=== PATIENT | female | born 1995 | race Hispanic/Latino ===

== ENCOUNTER 2017-04-26 22:27 | Inpatient (IN) | payer SELFPAY ==
[2017-04-26] MEDS ORDERED: cefTRIAXone\\ROCEPHIN 2 GM VIAL ONE (22:51)
[2017-04-26] MEDS ORDERED: Acetaminophen 325 MG TAB ONE (22:51)
[2017-04-26 22:52] LABS: #Basophils 0.1 thou/uL (0.0-0.2); #Neutrophils 15.9 thou/uL (1.40-6.50); %Basophils 0.3 % (0.0-1.0); %Eosinophils 0.1 % (0.0-10.0); %Lymphocytes 10.3 % (21.0-51.0); %Monocytes 5.4 % (0.0-10.0); Hematocrit 47.2 % (36.0-47.0); Mean Platelet Volume 7.9 fL (7.4-10.4); Red Blood Cell (RBC) Count 5.29 mill/uL (4.20-5.40); White Blood Cell (WBC) Count 18.9 thou/uL (4.8-10.8)
[2017-04-26 23:11] LABS: ALT (SGPT) 23 U/L (8-55); AST (SGOT) 22 U/L (5-34); Alkaline Phosphatase 99 U/L (40-150); Anion Gap 16 mmol/L (10-20); BUN (Urea Nitrogen) 5 mg/dL (7.0-18.7); Bilirubin, Total 0.9 mg/dL (0.2-1.2); Calc. Creatinine Clearance 0 mL/min (70-130); Calcium 9.4 mg/dL (7.8-10.44); Carbon Dioxide 22 mmol/L (22-29); Chloride 102 mmol/L (98-107); Estimated GFR-MDRD 88; Globulin 3.7 g/dL (2.4-3.5); Protein, Total 8.2 g/dL (6.0-8.3)
[2017-04-26] MEDS ORDERED: Ondansetron HCl/PF 4 MG/2 ML Vial ONE (23:15)
[2017-04-26 23:31] LABS: Bilirubin Negative (Negative); Blood, Urine Moderate (Negative); Glucose, Urine (Dipstick) Negative (Negative); Ketone, Urine 40 mg/dL (Negative); Nitrite Positive (Negative); Protein, Urine (Dipstick) 30 mg/dL (Neg-Trace)
[2017-04-26 23:39] LABS: Bacteria/HPF 4+ HPF (None Seen)
[2017-04-26 23:56] LABS: Hyaline Casts/LPF NONE SEEN LPF (0-3 Hyaline)
[2017-04-26 23:59] LABS: Renal Epithelial 0-3 HPF (0-3)
[2017-04-27 03:44] VITALS: BMI 32.9
[2017-04-27] MEDS ORDERED: Ondansetron HCl/PF 4 MG/2 ML Vial IVP PRN ×2 (03:52→07:40)
[2017-04-27] MEDS ORDERED: Ondansetron ODT 4 MG TAB SL PRN (03:52)
[2017-04-27] MEDS ORDERED: Acetaminophen 325 MG TAB PO PRN ×2 (03:52→04:19)
[2017-04-27] MEDS ORDERED: Sodium Chloride 0.9% 1,000 ML IV SCH (04:00)
[2017-04-27] MEDS ORDERED: Ibuprofen 200 MG TAB PO PRN (04:19)
[2017-04-27] MEDS: Sodium Chloride 0.9% 1,000 ML IV SCH ×2 (04:46→11:30)
[2017-04-27 05:20] LABS: Lactic Acid - Sepsis 1.1 mmol/L (0.5-2.2)
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
[2017-04-27] MEDS: Morphine Sulfate 2 MG/ML SYRINGE SLOW IVP PRN ×3 (07:20→20:11)
[2017-04-27] MEDS ORDERED: Ondansetron ODT 4 MG TAB PO PRN (07:40)
[2017-04-27] MEDS ORDERED: Diabetic Tussin 200 MG/10 ML UDCUP PO PRN (07:40)
[2017-04-27] MEDS ORDERED: Sodium Chloride 0.65% Nasal 44 ML BOT EA NARE PRN (07:40)
[2017-04-27] MEDS ORDERED: Artificial Tears 18 DROP/0.9 ML EA EYE PRN (07:40)
[2017-04-27] MEDS ORDERED: Senokot 8.6 MG TAB PO PRN (07:40)
[2017-04-27] MEDS ORDERED: Loratadine 10 MG TAB PO PRN (07:40)
[2017-04-27] MEDS ORDERED: Milk Of Magnesia 30 ML UDCUP PO PRN (07:40)
[2017-04-27] MEDS ORDERED: Temazepam 15 MG CAP PO PRN (07:40)
[2017-04-27] MEDS ORDERED: Loperamide HCl 2 MG CAP PO PRN (07:40)
[2017-04-27] MEDS ORDERED: Mag-Al 1200 mg/1200 mg/30 ML UDCUP PO PRN (07:40)
[2017-04-27] MEDS ORDERED: HYDROcodone/Acetaminophen 5/325 mg Tablet PO PRN (07:40)
[2017-04-27] MEDS ORDERED: Eucerin (Mineral Oil/Petrolatum,White) 30 gm Jar TOP PRN (07:40)
--- NOTE | 2017-04-27 08:23 | RAD ---
AP VIEW OF THE CHEST: INDICATION: Dyspnea. COMPARISON: Prior single view of the chest dated 09/16/10. FINDINGS: No airspace consolidation or pleural effusion is evident. Heart size and pulmonary vasculature are within normal limits. No acute osseous abnormality is evident. IMPRESSION: No acute cardiopulmonary abnormality. POS: [facility]
[2017-04-27] MEDS: Enoxaparin Sodium 40 MG/0.4 ML SYRINGE SC SCH (08:45)
[2017-04-27] MEDS: Famotidine 20 MG TAB PO SCH ×2 (08:45→20:08)
[2017-04-27] MEDS: Docusate 100 MG CAP PO SCH ×2 (08:45→20:08)
--- NOTE | 2017-04-27 09:13 | CT ---
CT ABDOMEN AND PELVIS WITHOUT CONTRAST: HISTORY: Recurrent UTI. Sepsis. Left flank pain. COMPARISON: Recent CT of the abdomen and pelvis from 10/03/2016. TECHNIQUE: Multiple axial tomograms obtained through the abdomen and pelvis without IV enhancement. FINDINGS: The lung bases are clear. The liver, spleen, and pancreas appear unremarkable, given the limitations of the noncontrast study. The adrenal glands appear normal. The kidneys are unremarkable. There is no hydronephrosis. There is no evidence of urinary tract ca lculus. The urinary bladder is contracted. there is an air-fluid level in the urinary bladder, and there is a bladder catheter in place. The small bowel loops are normal in caliber. The colon appears unremarkable. The appendix appears normal. The uterus and adnexa appear unremarkable. No free fluid. The aorta and retroperitoneum a ppear unremarkable. IMPRESSION: No acute findings. POS: [facility]
--- NOTE | 2017-04-27 10:52 | PDOC.PN ---
- Subjective Encounter Start Date: 04/27/17 Encounter Start Time: 09:00 -: old records requested/rev Patient seen and examined. No new complaints. No overnight events - Objective Resuscitation Status: Resuscitation Status FULL:Full Resuscitation MAR Reviewed: Yes Vital Signs & Weight: Vital Signs (12 hours) Temp Pulse Resp BP Pulse Ox 04/27/17 08:00 99.1 F 96 18 04/27/17 07:54 99.1 F 96 18 105/70 97 04/27/17 04:00 97.9 F 96 18 97 04/27/17 03:44 97.9 F 96 18 97/66 97 Weight Weight 174 lb 2.643 oz I&O: 04/26/17 04/27/17 04/28/17 06:59 06:59 06:59 Intake Total 990 Output Total 800 Balance 190 Result Diagrams: 04/26/17 22:38 04/26/17 22:38 Radiology Reviewed by me: Yes Phys Exam - Physical Examination Constitutional: NAD HEENT: PERRLA, moist MMs, sclera anicteric Neck: no JVD, supple Respiratory: no wheezing, no rales, no rhonchi Cardiovascular: RRR, no significant murmur, no rub Gastrointestinal: soft, non-tender, no distention, positive bowel sounds Musculoskeletal: no edema, pulses present Neurological: non-focal, normal sensation, moves all 4 limbs Psychiatric: normal affect, A&O x 3 Skin: no rash, normal turgor Dx/Plan (1) Sepsis Code(s): A41.9 - SEPSIS, UNSPECIFIED ORGANISM Status: Acute (2) UTI (urinary tract infection) Status: Acute Qualifiers: Urinary tract infection type: acute cystitis Hematuria presence: without hematuria Qualified Code(s): N30.00 - Acute cystitis without hematuria Comment: (3) Obesity (BMI 30.0-34.9) Code(s): E66.9 - OBESITY, UNSPECIFIED Status: Chronic (4) Low back pain Code(s): M54.5 - LOW BACK PAIN Status: Chronic - Plan cont current plan of care, continue antibiotics * continue IVF * continue rocephin and cipro * medication reviewed as below * symptomatic treatment * follow culture. Review of Systems - Review of Systems ENT: negative: Ear Pain, Ear Discharge, Nose Pain, Nose Discharge, Nose Congestion, Mouth Pain, Mouth Swelling, Throat Pain, Throat Swelling, Other Respiratory: negative: Cough, Dry, Shortness of Breath, Hemoptysis, SOB with Excertion, Pleuritic Pain, Sputum, Wheezing Cardiovascular: negative: Chest Pain, Palpitations, Orthopnea, Paroxysmal Noc. Dyspnea, Edema, Light Headedness, Other Gastrointestinal: negative: Nausea, Vomiting, Abdominal Pain, Diarrhea, Constipation, Melena, Hematochezia, Other Genitourinary: negative: Dysuria, Frequency, Incontinence, Hematuria, Retention , Other Musculoskeletal: negative: Neck Pain, Shoulder Pain, Arm Pain, Back Pain, Hand Pain, Leg Pain, Foot Pain, Other - Medications/Allergies Allergies/Adverse Reactions: Allergies Allergy/AdvReac Type Severity Reaction Status Date / Time No Known Drug Allergies Allergy Verified 10/04/16 00:06 Medications: Current Medications Acetaminophen (Tylenol) 650 mg PO Q4H PRN PRN Reason: Headache/Fever or Pain Hydrocodone Bitart/Acetaminophen ([place] 5/325) 1 tab PO Q4H PRN PRN Reason: Moderate Pain (4-6) Al Hydroxide/Mg Hydroxide (Maalox) 15 ml PO Q4H PRN PRN Reason: Heartburn or Indigestion Artificial Tears (Tears Naturale) 0 drop EA EYE PRN PRN PRN Reason: Dry Eyes Docusate Sodium (Colace) 100 mg PO BID [facility] Last Admin: 04/27/17 08:45 Dose: 100 mg Enoxaparin Sodium (Lovenox) 40 mg SC 0900 [facility] Last Admin: 04/27/17 08:45 Dose: 40 mg Famotidine (Pepcid) 20 mg PO BID [facility] Last Admin: 04/27/17 08:45 Dose: 20 mg Guaifenesin (Robitussin Sf) 200 mg PO Q4H PRN PRN Reason: Cough Hydralazine HCl (Apresoline) 10 mg SLOW IVP Q4H PRN PRN Reason: Systolic BP > 180 Ciprofloxacin/Dextrose 400 mg/ (Device) 200 mls @ 200 mls/hr IVPB Q12HR [facility] Last Admin: 04/27/17 08:45 Dose: 200 mls Sodium Chloride (Normal Saline 0.9%) 1,000 mls @ 100 mls/hr IV .Q10H [facility] Last Admin: 04/27/17 04:46 Dose: Not Given Ceftriaxone Sodium 2 gm/ (Sodium Chloride) 100 mls @ 200 mls/hr IVPB Q24HR [place] Ibuprofen (Motrin) 400 mg PO TIDPRN PRN PRN Reason: Pain Loperamide HCl (Imodium) 2 mg PO PRN PRN PRN Reason: Diarrhea/Loose Stools Loratadine (Claritin) 10 mg PO DAILYPRN PRN PRN Reason: Sinus Symptoms Magnesium Hydroxide (Milk Of Magnesium) 30 ml PO DAILYPRN PRN PRN Reason: Constipation Mineral Oil/White Petrolatum (Eucerin Cream) 0 gm TOP BIDPRN PRN PRN Reason: Dry Skin Morphine Sulfate (Morphine Sulfate) 2 mg SLOW IVP Q4H PRN PRN Reason: Chest Pain/BP Elevations Last Admin: 04/27/17 07:20 Dose: 2 mg Ondansetron HCl (Zofran Odt) 4 mg PO Q6H PRN PRN Reason: Nausea/Vomiting Ondansetron HCl (Zofran) 4 mg IVP Q6H PRN PRN Reason: Nausea/Vomiting Senna (Senokot) 2 tab PO HSPRN PRN PRN Reason: Constipation Sodium Chloride ([place] Nasal [place] 0.65%) 0 ml EA NARE QIDPRN PRN PRN Reason: Nasal Congestion Tamsulosin HCl (Flomax) 0.4 mg PO HS [facility] Temazepam (Restoril) 15 mg PO HSPRN PRN PRN Reason: Insomnia
[2017-04-27] MEDS: Tamsulosin HCl 0.4 MG CAP PO SCH (20:08)
[2017-04-27] MEDS: cefTRIAXone\\ROCEPHIN 2 GM in Sodium Chloride 0.9% 100 ML IVPB SCH (20:08)
[2017-04-28] MEDS: Sodium Chloride 0.9% 1,000 ML IV SCH (02:09)
[2017-04-28] MEDS: Morphine Sulfate 2 MG/ML SYRINGE SLOW IVP PRN ×2 (04:28→20:32)
[2017-04-28 06:32] LABS: #Eosinphils 0.1 thou/uL (0.0-0.7); #Lymphocytes 2.4 thou/uL (1.20-3.40); #Monocytes 0.7 thou/uL (0.11-0.59); #Neutrophils 4.3 thou/uL (1.40-6.50); %Basophils 0.4 % (0.0-1.0); %Eosinophils 1.9 % (0.0-10.0); %Lymphocytes 31.5 % (21.0-51.0); %Monocytes 8.6 % (0.0-10.0); Hematocrit 37.8 % (36.0-47.0); Mean Platelet Volume 8.3 fL (7.4-10.4); Red Blood Cell (RBC) Count 4.14 mill/uL (4.20-5.40); White Blood Cell (WBC) Count 7.5 thou/uL (4.8-10.8)
[2017-04-28 06:48] LABS: Anion Gap 14 mmol/L (10-20); BUN (Urea Nitrogen) 5 mg/dL (7.0-18.7); Calc. Creatinine Clearance 173 mL/min (70-130); Calcium 8.3 mg/dL (7.8-10.44); Carbon Dioxide 19 mmol/L (22-29); Chloride 110 mmol/L (98-107); Estimated GFR-MDRD Greater than 90
[2017-04-28] MEDS: Famotidine 20 MG TAB PO SCH ×2 (08:31→20:28)
[2017-04-28] MEDS: Docusate 100 MG CAP PO SCH ×2 (08:31→20:29)
[2017-04-28] MEDS: Enoxaparin Sodium 40 MG/0.4 ML SYRINGE SC SCH (08:32)
--- NOTE | 2017-04-28 10:27 | PDOC.PN ---
- Subjective Encounter Start Date: 04/28/17 Encounter Start Time: 07:55 Patient seen and examined. No new complaints. No overnight events - Objective Resuscitation Status: Resuscitation Status FULL:Full Resuscitation MAR Reviewed: Yes Vital Signs & Weight: Vital Signs (12 hours) Temp Pulse Resp BP Pulse Ox 04/28/17 08:00 98.0 F 70 16 04/28/17 07:50 98.0 F 70 16 107/74 98 Weight Weight 174 lb 2.643 oz I&O: 04/27/17 04/28/17 04/29/17 06:59 06:59 06:59 Intake Total 4010 Output Total 4000 Balance 10 Result Diagrams: 04/28/17 05:57 04/28/17 05:57 Radiology Reviewed by me: Yes (CT abdomen) Phys Exam - Physical Examination Constitutional: NAD HEENT: PERRLA, moist MMs, sclera anicteric Neck: no JVD, supple Respiratory: no wheezing, no rales, no rhonchi Cardiovascular: RRR, no significant murmur, no rub Gastrointestinal: soft, non-tender, no distention, positive bowel sounds Musculoskeletal: no edema, pulses present Neurological: non-focal, normal sensation, moves all 4 limbs Lymphatic: no nodes Psychiatric: normal affect, A&O x 3 Skin: no rash, normal turgor Dx/Plan (1) Sepsis Code(s): A41.9 - SEPSIS, UNSPECIFIED ORGANISM Status: Acute (2) UTI (urinary tract infection) Status: Acute Qualifiers: Urinary tract infection type: acute cystitis Hematuria presence: without hematuria Qualified Code(s): N30.00 - Acute cystitis without hematuria Comment: (3) Obesity (BMI 30.0-34.9) Code(s): E66.9 - OBESITY, UNSPECIFIED Status: Chronic (4) Low back pain Code(s): M54.5 - LOW BACK PAIN Status: Chronic - Plan cont current plan of care, continue antibiotics * DC IVF * continue rocephin and cipro * follow culture * will change to oral antibiotics tomorrow and plan for discharge tomorrow * medication reviewed as below * symptomatic treatment.. Review of Systems - Review of Systems ENT: negative: Ear Pain, Ear Discharge, Nose Pain, Nose Discharge, Nose Congestion, Mouth Pain, Mouth Swelling, Throat Pain, Throat Swelling, Other Respiratory: negative: Cough, Dry, Shortness of Breath, Hemoptysis, SOB with Excertion, Pleuritic Pain, Sputum, Wheezing Cardiovascular: negative: Chest Pain, Palpitations, Orthopnea, Paroxysmal Noc. Dyspnea, Edema, Light Headedness, Other Gastrointestinal: negative: Nausea, Vomiting, Abdominal Pain, Diarrhea, Constipation, Melena, Hematochezia, Other Genitourinary: negative: Dysuria, Frequency, Incontinence, Hematuria, Retention , Other Musculoskeletal: negative: Neck Pain, Shoulder Pain, Arm Pain, Back Pain, Hand Pain, Leg Pain, Foot Pain, Other - Medications/Allergies Allergies/Adverse Reactions: Allergies Allergy/AdvReac Type Severity Reaction Status Date / Time No Known Drug Allergies Allergy Verified 10/04/16 00:06 Medications: Current Medications Acetaminophen (Tylenol) 650 mg PO Q4H PRN PRN Reason: Headache/Fever or Pain Hydrocodone Bitart/Acetaminophen ([place] 5/325) 1 tab PO Q4H PRN PRN Reason: Moderate Pain (4-6) Al Hydroxide/Mg Hydroxide (Maalox) 15 ml PO Q4H PRN PRN Reason: Heartburn or Indigestion Artificial Tears (Tears Naturale) 0 drop EA EYE PRN PRN PRN Reason: Dry Eyes Docusate Sodium (Colace) 100 mg PO BID [facility] Last Admin: 04/28/17 08:31 Dose: 100 mg Enoxaparin Sodium (Lovenox) 40 mg SC 0900 [facility] Last Admin: 04/28/17 08:32 Dose: 40 mg Famotidine (Pepcid) 20 mg PO BID [facility] Last Admin: 04/28/17 08:31 Dose: 20 mg Guaifenesin (Robitussin Sf) 200 mg PO Q4H PRN PRN Reason: Cough Hydralazine HCl (Apresoline) 10 mg SLOW IVP Q4H PRN PRN Reason: Systolic BP > 180 Ciprofloxacin/Dextrose 400 mg/ (Device) 200 mls @ 200 mls/hr IVPB Q12HR [facility] Last Admin: 04/28/17 08:31 Dose: 200 mls Ceftriaxone Sodium 2 gm/ (Sodium Chloride) 100 mls @ 200 mls/hr IVPB Q24HR [facility] Last Admin: 04/27/17 20:08 Dose: 100 mls Ibuprofen (Motrin) 400 mg PO TIDPRN PRN PRN Reason: Pain Loperamide HCl (Imodium) 2 mg PO PRN PRN PRN Reason: Diarrhea/Loose Stools Loratadine (Claritin) 10 mg PO DAILYPRN PRN PRN Reason: Sinus Symptoms Magnesium Hydroxide (Milk Of Magnesium) 30 ml PO DAILYPRN PRN PRN Reason: Constipation Mineral Oil/White Petrolatum (Eucerin Cream) 0 gm TOP BIDPRN PRN PRN Reason: Dry Skin Morphine Sulfate (Morphine Sulfate) 2 mg SLOW IVP Q4H PRN PRN Reason: Chest Pain/BP Elevations Last Admin: 04/28/17 04:28 Dose: 2 mg Ondansetron HCl (Zofran Odt) 4 mg PO Q6H PRN PRN Reason: Nausea/Vomiting Ondansetron HCl (Zofran) 4 mg IVP Q6H PRN PRN Reason: Nausea/Vomiting Senna (Senokot) 2 tab PO HSPRN PRN PRN Reason: Constipation Sodium Chloride ([place] Nasal [place] 0.65%) 0 ml EA NARE QIDPRN PRN PRN Reason: Nasal Congestion Tamsulosin HCl (Flomax) 0.4 mg PO HS [facility] Last Admin: 04/27/17 20:08 Dose: 0.4 mg Temazepam (Restoril) 15 mg PO HSPRN PRN PRN Reason: Insomnia
[2017-04-28] MEDS: Tamsulosin HCl 0.4 MG CAP PO SCH (20:28)
[2017-04-28] MEDS: cefTRIAXone\\ROCEPHIN 2 GM in Sodium Chloride 0.9% 100 ML IVPB SCH (22:57)
[2017-04-29] MEDS: Famotidine 20 MG TAB PO SCH (09:38)
[2017-04-29] MEDS: Docusate 100 MG CAP PO SCH (09:39)
[2017-04-29] MEDS: Enoxaparin Sodium 40 MG/0.4 ML SYRINGE SC SCH (09:39)
--- NOTE | 2017-04-29 12:04 | DIS ---
DATE OF ADMISSION: 04/26/2017 DATE OF DISCHARGE: 04/29/2017 PRIMARY CARE PHYSICIAN: Dr. Domo Brown. DISCHARGE DISPOSITION: Home. PRIMARY DISCHARGE DIAGNOSES: 1. Sepsis, resolved. 2. Urinary tract infection due to Escherichia coli. SECONDARY DISCHARGE DIAGNOSES: Obesity with BMI 32, chronic low back pain. PRIMARY PROCEDURE/OPERATION: None. RADIOLOGICAL INVESTIGATION: Chest x-ray was normal. Abdomen and pelvis CT scan was negative for any obstruction. SIGNIFICANT LABORATORY DATA: WBC 7.5, hemoglobin 12.8, platelet 124. Sodium 139, creatinine 0.63. LFT normal. Lactic acid normal. Urinalysis suggestive of UTI. Urine culture grew E. coli. Blood culture was negative. DISCHARGE MEDICATIONS: Ciprofloxacin 500 mg p.o. b.i.d. for 10 days. CONTRAINDICATIONS: None. CODE STATUS: FULL CODE. INPATIENT CONSULTANTS: None. ALLERGIES: No known drug allergies. DISCHARGE PLAN: Post hospital, patient will follow up with primary care physician in 1 week. HOSPITAL COURSE: A 21-year-old female who was admitted by Dr. Ovalles, please see his H\T\P for further details. Patient was mainly admitted for UTI symptoms. She was having abnormal urinalysis and suspicious for UTI. She also had leukocytosis. She was having sepsis criteria. She was admitted to medical floor. She was treated with Rocephin and ciprofloxacin. She was also given IV fluid while in hospital. CT abdomen stone protocol was done, which was unremarkable. Patient culture grew E. coli and based on culture and sensitivity result, we are changing to Cipro on discharge. In emergency room, they did Berry catheter, which was discontinued after admission. Patient is seen and examined at bedside today. PHYSICAL EXAMINATION: VITAL SIGNS: Currently temperature 98.2, pulse 66, respiratory rate 16, saturation 97%, blood pressure 93/61, weight 174 pounds. GENERAL: Patient is currently alert, awake, no acute distress. HEAD: Normocephalic, atraumatic. LUNGS: Clear. CARDIAC: S1, S2 regular without any murmur. ABDOMEN: Soft and benign. EXTREMITIES: No edema. NEUROLOGIC: Nonfocal examination. Total time spent on discharge day more than 30 minutes. [facility]
[2017-04-29 17:17] VITALS: BP 104/72; TEMP 98.5
== END 2017-04-29 13:29 | disposition home or self-care (01) | DRG 872 ==
LOC: ERS 22:27 → T4-A 23:55
PROVIDERS: ADMIT Internal Medicine; ATTEND Internal Medicine
DX: A41.9 Sepsis, unspecified organism (principal); N39.0 Urinary tract infection, site not specified; E66.9 Obesity, unspecified; M54.5 Low back pain; Z68.32 Body mass index [BMI] 32.0-32.9, adult; B96.20 Unspecified Escherichia coli [E. coli] as the cause of diseases classified elsewhere
CPT/HCPCS: 36415; 51702; 71010; 74176; 80048; 80053; 81003; 81015; 81025; 83605; 85025; 87040; 87077; 87086; 87186; 96361; 96365; 96366; 96367; 96374; 96375; J0696; J0744; J1650; J1956; J2270; J2405; J7050

== ENCOUNTER 2018-05-16 22:25 | Emergency (ER) | payer BC, SELFPAY ==
[2018-05-16 22:56] LABS: #Basophils 0.1 thou/uL (0.0-0.2); #Eosinphils 0.2 thou/uL (0.0-0.7); #Lymphocytes 3.5 thou/uL (1.20-3.40); #Monocytes 0.7 thou/uL (0.11-0.59); #Neutrophils 9.1 thou/uL (1.40-6.50); %Basophils 0.4 % (0.0-1.0); %Eosinophils 1.7 % (0.0-10.0); %Lymphocytes 25.6 % (21.0-51.0); %Monocytes 5.3 % (0.0-10.0); %Neutrophils 67.1 % (42.0-75.0); Mean Corpuscular Hemoglobin 30.6 pg (27.0-31.0); Mean Platelet Volume 8.4 fL (7.4-10.4); Platelet Count 243 thou/uL (130-400); RBC Distribution Width 11.6 % (11.5-14.5); Red Blood Cell (RBC) Count 4.57 mill/uL (4.20-5.40); White Blood Cell (WBC) Count 13.6 thou/uL (4.8-10.8)
[2018-05-16 23:09] LABS: BHCG - Serum POSITIVE (NEGATIVE); Pregs Control Background? CLEAR/WHITE (CLR/WHITE); Pregs Control Bar Appear? YES (CONTROL BAR)
[2018-05-16 23:18] LABS: ALT (SGPT) 22 U/L (8-55); AST (SGOT) 13 U/L (5-34); Albumin 4.1 g/dL (3.5-5.0); Alkaline Phosphatase 84 U/L (40-150); Anion Gap 12 mmol/L (10-20); BUN (Urea Nitrogen) 8 mg/dL (7.0-18.7); Bilirubin, Total 0.4 mg/dL (0.2-1.2); Calc. Creatinine Clearance 0 mL/min (70-130); Calcium 9.3 mg/dL (7.8-10.44); Carbon Dioxide 23 mmol/L (22-29); Chloride 104 mmol/L (98-107); Estimated GFR-MDRD Greater than 90; Glucose 120 mg/dL (70-105); Protein, Total 7.1 g/dL (6.0-8.3); Sodium 135 mmol/L (136-145)
[2018-05-16 23:22] LABS: Bilirubin Negative (Negative); Blood, Urine Small (Negative); Clarity CLEAR (Clear); Glucose, Urine (Dipstick) Negative (Negative); Leukocyte Trace (Negative); Nitrite Negative (Negative); Protein, Urine (Dipstick) Negative (Neg-Trace); Specific Gravity, Urine 1.026 (1.002-1.036)
[2018-05-16 23:24] LABS: Bacteria/HPF None Seen HPF (None Seen); Hyaline Casts/LPF 0-3 HYALINE CAST LPF (0-3 Hyaline); Pathc Cast-AUWi Flag 0.58 (0-2.49); RBC/HPF 0-3 HPF (0-3)
[2018-05-16] MEDS ORDERED: Acetaminophen 500 MG TAB ONE (23:26)
[2018-05-17] MEDS ORDERED: cefTRIAXone\\ROCEPHIN 1 GM VIAL ONE (00:43)
[2018-05-17] MEDS ORDERED: Sodium Chloride 0.9% 100 ML ONE (00:43)
[2018-05-17] MEDS ORDERED: Morphine 4 MG/ML VIAL ONE (00:47)
--- NOTE | 2018-05-17 08:28 | ULT ---
PRELIMINARY REPORT/[facility]/EMERGENTY AFTER-HOURS PROCEDURE US Transabd First Trimester First Gest CLINICAL HISTORY: 22 years old, female; Pain and signs and symptoms; Lmp or gestational age (in weeks): 7w1d; Antepartu m complications; Bleeding; complicated by abdominal or pelvic pain; Other: Left flank; Preg nant TECHNIQUE: Real-time ultrasound of the transabd first trimester first gest with image documentation. COMPARISON: No relevant prior studies available. FINDINGS: There is a live single intrauterine with an estimated heart rate of 128 beats per min mo[place]gan. GESTATIONAL SAC - 2.6 cm - C/W 7 weeks 4 days CRL - 7.7 mm - C/W 6 weeks 5 days YOLK SAC - 4.5 mm There are no uterine abnormalities or significant free intraperitoneal fluid. The adenxa are unremark able. IMPRESSION: Single live intrauterine with an estimated gestational age of 7 weeks 2 days by ultrasound criteria. Small subchorionic hemorrhage Thank you for allowing us to participate in the care of your patient. Dictated and Authenticated by: Edward Cortes MD 05/17/2018 1:10 AM Central Time ([place] & [place]) FINAL REPORT OBSTETRIC SONOGRAM: DATE: 05/17/2018. TIME: Performed on an emergency basis at 0004 hours. HISTORY: Early . Pain and bleeding. FINDINGS: Agree with the preliminary report by Dr. Cortes from [facility]. Early intrauterine gestation is documented with estimated age of 7 weeks 2 days. Small subchorionic hemorrhage. POS: [facility]
== END 2018-05-17 01:27 | disposition home or self-care (01) ==
LOC: ERS 22:25
DX: O20.0 Threatened abortion (principal); O23.41 Unspecified infection of urinary tract in pregnancy, first trimester; Z87.442 Personal history of urinary calculi; Z3A.01 Less than 8 weeks gestation of pregnancy
CPT/HCPCS: 36415; 76856; 80053; 81003; 81015; 84702; 84703; 85025; 86900; 86901; 87086; 96361; 96365; 96375; J0696; J2270; J7050

== ENCOUNTER 2018-06-27 18:17 | Emergency (ER) | payer BC ==
[2018-06-27] MEDS ORDERED: Lidocaine 1% (PF) 30 ML VIAL ONE (18:29)
== END 2018-06-27 19:03 | disposition home or self-care (01) ==
LOC: ERS 18:17
DX: O99.711 Diseases of the skin and subcutaneous tissue complicating pregnancy, first trimester (principal); L03.011 Cellulitis of right finger; Z3A.12 12 weeks gestation of pregnancy
CPT/HCPCS: 10061; J2001

== ENCOUNTER 2018-10-17 17:32 | Day surgery (SDC) | payer BC ==
[2018-10-17 17:58] VITALS: BP 108/62; TEMP 98.3; BMI 36.1
--- NOTE | 2018-10-17 18:10 | PDOC.LDHP ---
Labor and Delivery H&P Chief complaint: other (28 weeks 3 days, here for lower back pain possible kidney stone) HPI: Patient of Dr Roca here in L&D Triage Tiem: 1805 HPI: 23 yo at 28 weeks 3 days with HX recurrent UTIs and HX renal stones in past. She has been on Keflex since the fall for UTI hx. Here for LBP and possible stone pain but no CTX, no VB, no SOB. States last she was "septic" from the stone and transfered to another location. review of Systems: Complete ROS completed and as per HPI Current gestational age (weeks): 28 (3 days) Dating criteria: last menstrual period Grav: 3 Para: 2 OB History Details: One PTB HX at 26 weeks induced for "kidney stones" Current complications: other (Recurrent UTI HX and "kidney stones") Abnormal US findings: No Current medications: pre-mariama vitamins, other (Keflex) Allergies/Adverse Reactions: Allergies Allergy/AdvReac Type Severity Reaction Status Date / Time No Known Drug Allergies Allergy Verified 10/04/16 00:06 Social history: none - Physical Exam Vital signs reviewed and normal: yes (108/62 P90 Temp 98.3) General: NAD Heart: RRR Lungs: CTAB Abdomen: gravid Extremeties: no edema FHT: category 1 [place] contractions every: none - Assessment at 28 weeks 3 days with possible renal colic...afebrile, on suppression. - Plan Plan: observation in L&D (I have ordered: 1. IVFs 2. pain meds prn 3. Cath UA 4. CBC 5. CMP 6. Bilateral renal sono with jets)
[2018-10-17] MEDS ORDERED: Lactated Ringer's 1,000 ML IV SCH (18:15)
[2018-10-17] MEDS ORDERED: Butorphanol Tartrate 1 MG/ML VIAL SLOW IVP PRN (18:22)
[2018-10-17] MEDS ORDERED: Promethazine HCl 25 MG/ML VIAL IM/IV PRN (18:22)
[2018-10-17 18:41] LABS: #Basophils 0.1 thou/uL (0.0-0.2); #Eosinphils 0.1 thou/uL (0.0-0.7); #Lymphocytes 3.1 thou/uL (1.20-3.40); #Monocytes 0.8 thou/uL (0.11-0.59); #Neutrophils 9.6 thou/uL (1.40-6.50); %Basophils 0.4 % (0.0-1.0); %Eosinophils 0.8 % (0.0-10.0); %Lymphocytes 22.8 % (21.0-51.0); %Monocytes 5.5 % (0.0-10.0); %Neutrophils 70.4 % (42.0-75.0); Hemoglobin 12.9 g/dL (12.0-16.0); Mean Corpuscular HGB CONC 33.7 g/dL (32.0-36.0); Mean Corpuscular Hemoglobin 29.6 pg (27.0-31.0); Mean Corpuscular Volume 87.9 fL (78.0-98.0); Mean Platelet Volume 9.4 fL (7.4-10.4); Platelet Count 211 thou/uL (130-400); RBC Distribution Width 11.5 % (11.5-14.5); Red Blood Cell (RBC) Count 4.34 mill/uL (4.20-5.40); White Blood Cell (WBC) Count 13.6 thou/uL (4.8-10.8)
[2018-10-17 18:50] LABS: Bilirubin Negative (Negative); Blood, Urine Negative (Negative); Clarity TURBID (Clear); Glucose, Urine (Dipstick) Negative (Negative); Leukocyte Negative (Negative); Nitrite Negative (Negative); Protein, Urine (Dipstick) Negative (Neg-Trace); Specific Gravity, Urine 1.026 (1.002-1.036); pH, Urine 6.5 (5.0-9.0)
[2018-10-17 18:55] LABS: Bacteria/HPF None Seen HPF (None Seen); Hyaline Casts/LPF 0-3 HYALINE CAST LPF (0-3 Hyaline); Pathc Cast-AUWi Flag 0.27 (0-2.49); RBC/HPF 0-3 HPF (0-3); Squamous Epithelial 0-3 HPF (0-3); Urine Culture Reflex No No; WBC/HPF 0-3 HPF (0-3)
--- NOTE | 2018-10-17 19:24 | PDOC.EVN ---
Event Note - Event Note Event Note: 1924: Lab follow up/Patient follow up: Still afebrile Feels better after IVF hydration No VB, no LOF No CTX on toco Labs: UA clear CBC with WBC 13.6 with 9.6 Neutros (possible effect) CMP still pending Renal sono with bilateral ueretral jets seen, no stone in renal pelyvices I have discussed the findings with the patient and family at bedside. At this time, I do not see evidence of pyelo. There is no evidence of ureteral obstruction, nor PTL. This may have been small ureteral colic vs discomforts of . I did not check CX as my suspicoin that t5his is labor related is very low Await CMP and likely follow up with MD in 48 hrs
[2018-10-17 19:35] LABS: ALT (SGPT) 13 U/L (8-55); AST (SGOT) 11 U/L (5-34); Albumin 3.5 g/dL (3.5-5.0); Alkaline Phosphatase 123 U/L (40-150); Anion Gap 13 mmol/L (10-20); BUN (Urea Nitrogen) 10 mg/dL (7.0-18.7); Bilirubin, Total 0.2 mg/dL (0.2-1.2); Calc. Creatinine Clearance 210 mL/min (70-130); Carbon Dioxide 22 mmol/L (22-29); Chloride 106 mmol/L (98-107); Estimated GFR-MDRD Greater than 90; Globulin 3.1 g/dL (2.4-3.5); Glucose 80 mg/dL (70-105); Potassium 3.9 mmol/L (3.5-5.1); Protein, Total 6.6 g/dL (6.0-8.3); Sodium 137 mmol/L (136-145)
--- NOTE | 2018-10-17 19:52 | PDOC.EVN ---
Event Note - Event Note Event Note: CMP ok
--- NOTE | 2018-10-17 21:00 | ULT ---
RENAL SONOGRAM: 10/17/2018 HISTORY: Flank pain. History of kidney stones. The patient is currently . FINDINGS: The right kidney measures 12.2 cm x 4.3 cm with the left kidney measuring 9.9 cm x 5.5 cm. There is mild discrepancy in renal size, of uncertain etiology. There is mild right hydronephrosis. Minimal pelviectasis is present on the left, without overt hydro nephrosis seen on the left. The urinary bladder is partially distended and has a normal sonographic appearance. The ureteral jet s are visualized bilaterally on color-flow evaluation. The patient is unable to void for further aurora luation. IMPRESSION: 1. Mild right hydronephrosis with minimal pelvocaliectasis on the left. Findings are likely attribu table to the patient's intrauterine gestation. 2. Ureteral jets are visualized bilaterally with color-flow evaluation. 3. Mild nonspecific asymmetry in renal size. No renal mass or perinephric fluid collection is seen. POS: [facility]
== END 2018-10-17 20:08 | disposition home or self-care (01) ==
LOC: L&D/OP 17:32
PROVIDERS: ATTEND Obstetrics & Gynecology
DX: O99.89 Other specified diseases and conditions complicating pregnancy, childbirth and the puerperium (principal); M54.5 Low back pain; Z3A.28 28 weeks gestation of pregnancy; Z79.899 Other long term (current) drug therapy; Z79.2 Long term (current) use of antibiotics
CPT/HCPCS: 36415; 51701; 76770; 80053; 81001; 85025; 96360; 96372; 99283; J0595; J2550

== ENCOUNTER 2018-11-07 18:09 | Day surgery (SDC) | payer BC ==
[2018-11-07 18:44] VITALS: BP 112/56; TEMP 98.5; BMI 38.0
[2018-11-07 19:41] LABS: Bilirubin Negative (Negative); Blood, Urine Large (Negative); Clarity TURBID (Clear); Glucose, Urine (Dipstick) Negative (Negative); Leukocyte Large (Negative); Nitrite Negative (Negative); Protein, Urine (Dipstick) 100 mg/dL (Neg-Trace); Specific Gravity, Urine 1.021 (1.002-1.036); pH, Urine 6.5 (5.0-9.0)
[2018-11-07 19:43] LABS: Bacteria/HPF 4+ HPF (None Seen); Hyaline Casts/LPF 7-10 HYALINE CAST LPF (0-3 Hyaline); Pathc Cast-AUWi Flag 1.85 (0-2.49); RBC/HPF GREATER THAN 50-TNTC HPF (0-3); Squamous Epithelial 0-3 HPF (0-3)
--- NOTE | 2018-11-07 20:11 | PDOC.LDHP ---
Labor and Delivery H&P Chief complaint: abdominal pain HPI: 23 y/o at 31w3d, patient of Dr. Mello, presents with lower abdominal pressure, cramping. Has history of frequent UTIs. Denies VB, LOF, or decreased FM. ROS neg for HEENT, cv, pulm, gi, gu, neuro, psych, skin, musculoskeletal or constitutional symptoms other than mentioned above. OB History Details: 2 prior term SVDs Current complications: none Past Medical History: Recurrent UTIs Hx kidney stones Current medications: pre- vitamins, other (Keflex) Previous surgical history: cholecystectomy, other (hernia repair) Allergies/Adverse Reactions: Allergies Allergy/AdvReac Type Severity Reaction Status Date / Time No Known Drug Allergies Allergy Verified 11/07/18 18:45 Social history: none - Physical Exam Vital signs reviewed and normal: yes General: NAD, resting Lungs: nonlabored breathing Abdomen: gravid Extremeties: no edema FHT: category 1 (130s, mod variability, + accels, no decels) [place] contractions every: none - Vaginal Exam cm dilated: 0 Effacement: 0% Station: -3 - Assessment 23 y/o at 31w3d with UTI. No e/o active labor. status reassuring with reactive NST. - Plan -: Given Rx for augmentin. D/c home with precautions. Advised to return for fever , back pain, or other concerns.
== END 2018-11-07 20:20 | disposition home or self-care (01) ==
LOC: L&D/OP 18:09
PROVIDERS: ATTEND Obstetrics & Gynecology
DX: O23.43 Unspecified infection of urinary tract in pregnancy, third trimester (principal); Z79.899 Other long term (current) drug therapy; Z3A.31 31 weeks gestation of pregnancy; Z79.2 Long term (current) use of antibiotics
CPT/HCPCS: 51701; 81001; 99282; A4353

== ENCOUNTER 2018-11-08 12:58 | Observation (INO) | payer BC, OTHER ==
[2018-11-08 14:26] VITALS: BMI 37.4
--- NOTE | 2018-11-08 14:41 | ULT ---
FExam: Bilateral renal ultrasound HISTORY: 31 week patient. History of renal calculi and hydronephrosis. COMPARISON: 10/17/2018 FINDINGS: Right kidney: Normal cortical echotexture. There is dilatation of the pelvis. No evidence of signific ant calyceal dilatation. When compared to the previous examination, the degree of hydronephrosis has decreased. Right kidney measurements: 4.4 x 11.9 x 5.0 cm Left kidney: Normal cortical echotexture. No hydronephrosis Left kidney measurements 6.5 x 5.1 x 12.0 cm Urinary bladder: Limited evaluation due to decompressed bladder. IMPRESSION: 1. Mild right renal pelvic dilatation without calyceal dilatation. The degree of hydronephrosis has s lightly decreased when compared to the previous examination. 2. Due to recent Berry catheterization, urinary bladder was not distended. Neither ureteral jet could be identified on this examination.
[2018-11-08 14:42] LABS: #Eosinphils 0.1 thou/uL (0.0-0.7); #Lymphocytes 2.1 thou/uL (1.20-3.40); #Monocytes 0.7 thou/uL (0.11-0.59); #Neutrophils 8.8 thou/uL (1.40-6.50); %Basophils 0.4 % (0.0-1.0); %Eosinophils 0.7 % (0.0-10.0); %Monocytes 5.9 % (0.0-10.0); Hemoglobin 11.6 g/dL (12.0-16.0); Mean Corpuscular HGB CONC 33.5 g/dL (32.0-36.0); Mean Corpuscular Hemoglobin 29.3 pg (27.0-31.0); Mean Corpuscular Volume 87.5 fL (78.0-98.0); Platelet Count 190 thou/uL (130-400); RBC Distribution Width 11.6 % (11.5-14.5); Red Blood Cell (RBC) Count 3.96 mill/uL (4.20-5.40); White Blood Cell (WBC) Count 11.7 thou/uL (4.8-10.8)
[2018-11-08] MEDS ORDERED: Acetaminophen 500 MG TAB PO PRN (14:54)
[2018-11-08] MEDS ORDERED: Ondansetron PF 4 MG/2 ML Vial IVP PRN (14:54)
[2018-11-08] MEDS ORDERED: Promethazine HCl 25 MG/ML VIAL IM PRN (14:54)
[2018-11-08] MEDS ORDERED: Lactated Ringer's 1,000 ML IV SCH (15:00)
[2018-11-08] MEDS ORDERED: Butorphanol Tartrate 1 MG/ML VIAL ONE (15:04)
[2018-11-08] MEDS: Butorphanol Tartrate 1 MG/ML VIAL SLOW IVP PRN (15:15)
[2018-11-08] MEDS: cefTRIAXone\\ROCEPHIN 1 GM in Sodium Chloride 0.9% 100 ML IVPB SCH (15:30)
[2018-11-08] MEDS: Acetaminophen/Codeine 30-300mg Tablet PO PRN ×2 (16:57→21:23)
[2018-11-08] MEDS: Zolpidem Tartrate 5 MG TAB PO PRN (22:13)
--- NOTE | 2018-11-08 22:31 | HP ---
CHIEF COMPLAINT: Back pain, recent UTI. HISTORY OF PRESENT ILLNESS: Ms. Rees is a 23-year-old G3, P2-0-0-2 with an estimated date of confinement of 01/06/2019, who presents from Dr. Roca's office. She saw him today after being evaluated in Labor and Delivery last night. She was seen by Dr. Jo and treated for urinary tract infection. Overnight, she states that she has felt worse. She does not feel well in general and now she is complaining of back pain, worse on the left than on the right. She denies ruptured membranes or vaginal bleeding. Her care has been with Dr. Roca and she has been on prophylactic Keflex for history of UTI and sepsis. PAST OBSTETRICAL HISTORY: Includes two uncomplicated vaginal deliveries. She states that she did have urinary sepsis at 20 weeks with her last and states she was admitted to the ICU. PAST MEDICAL HISTORY: Frequent UTIs. PAST SURGICAL HISTORY: Cholecystectomy and hernia repair. CURRENT MEDICATIONS: 1. vitamins. 2. Keflex. 3. Augmentin. ALLERGIES: NO KNOWN ALLERGIES. SOCIAL HISTORY: She denies tobacco, alcohol, or drug use. FAMILY HISTORY: Unremarkable. REVIEW OF SYSTEMS: Positive for malaise and back pain. She denies nausea, vomiting, fever at home, ruptured membranes, or vaginal bleeding. PHYSICAL EXAMINATION: VITAL SIGNS: In triage, her blood pressure is 106/57 with a pulse of 100, her temperature is 98.1. GENERAL: She does not look acutely sick, but does appear she does not feel well. CHEST: Clear to auscultation. CARDIOVASCULAR: Regular rate and rhythm. ABDOMEN: Soft, nontender, and gravid. PELVIC: Deferred. She is tender across her back, more on the left than on the right. LABORATORY DATA: CBC done this afternoon shows a white count of 11.7, hemoglobin of 11.6 and a hematocrit of 34.7. There is 190,000 platelets. Urinalysis from last night shows a specific gravity of 1.021, which is turbid in appearance. There is 1 to 2+ protein with large blood and large leukocytes. Microscopic evaluation shows too numerous to count red blood cells, too numerous to count white blood cells, squamous epithelial cells of 0-3, and 4+ bacteria. Renal ultrasound was done today and there was no evidence of stones. There has been documented hydronephrosis on the left, but that appears improved today. No evidence of kidney stones is reported. ASSESSMENT: 1. A 31 and 4/7th week intrauterine . 2. Suspected pyelonephritis. PLAN: I did discuss the patient at length with Dr. Roca and he would like to see the patient admitted and started on antibiotics. A urine culture was obtained to guide therapy and I have started her on IV Rocephin. She will be watched closely for clinical improvement. Dr. Roca has been notified. Job ID: [id number] MTDD
[2018-11-09] MEDS: Lactated Ringer's 1,000 ML IV SCH ×3 (00:28→17:37)
[2018-11-09] MEDS: Acetaminophen/Codeine 30-300mg Tablet PO PRN (14:05)
[2018-11-09] MEDS: Butorphanol Tartrate 1 MG/ML VIAL SLOW IVP PRN (15:53)
[2018-11-09] MEDS: cefTRIAXone\\ROCEPHIN 1 GM in Sodium Chloride 0.9% 100 ML IVPB SCH (15:54)
--- NOTE | 2018-11-09 16:50 | PDOC.LDHP ---
Labor and Delivery H&P Chief complaint: other HPI: 23 y/o --2 at 21 and 4/7 weeks presents from clinic with c/o nausea, vomiting, back pain, and hx of urosepsis requiring life-flight to [place] ([facility]) last . Pt had 4+ bacteria on UA the previous day on L&D, and was discharged home on Augmentin. She was previously on Keflex daily suppression. Urine Culture sent, and Rocephin started. Current gestational age (weeks): 31 Due date: 01/06/19 Grav: 3 Para: 2 Current complications: none Abnormal US findings: No Current medications: pre-mariama vitamins, other (keflec 500mg po q day) Previous surgical history: none Allergies/Adverse Reactions: Allergies Allergy/AdvReac Type Severity Reaction Status Date / Time No Known Drug Allergies Allergy Verified 11/07/18 18:45 Social history: none - Physical Exam Vital signs reviewed and normal: yes General: NAD, resting Heart: RRR Lungs: nonlabored breathing Abdomen: NTTP Extremeties: no edema FHT: category 1 - Plan Plan: admit to L&D, other (IV Antibiotics for presumed early pyelonephritis without evidence of sepsis. Urine Culture. Kidney Ultrasound.)
--- NOTE | 2018-11-09 16:54 | PDOC.LDPN ---
Labor & Delivery Progress Note - Subjective Subjective: comfortable - Objective Vital signs reviewed and normal: yes General: NAD, resting FHT: category 1 Plan: continue plan of care (Continue IV Rochepin, and plan DC to home tomorrow after 3rd dose if patient continues to improve and is stable.)
[2018-11-09] MEDS: Zolpidem Tartrate 5 MG TAB PO PRN (23:22)
[2018-11-10] MEDS: Lactated Ringer's 1,000 ML IV SCH (01:48)
[2018-11-10 02:52] VITALS: BP 109/59
[2018-11-10 10:03] VITALS: TEMP 98.2
[2018-11-10] MEDS: cefTRIAXone\\ROCEPHIN 1 GM in Sodium Chloride 0.9% 100 ML IVPB SCH (12:01)
--- NOTE | 2018-11-10 13:03 | PDOC.LDPN ---
Labor & Delivery Progress Note - Objective Vital signs reviewed and normal: yes General: NAD, resting Uterine fundus: non tender FHT: category 1 Plan: continue plan of care (Patient appears to be stable s/p 3 dose of Rocephin for presumed early recurrent pyelonephritis. She feels well, is afebrile. Gram negative rods noted on culture in low quantity - likely due to 2 separate antibiotics already in use. Will f/u next week in clinic. DC to home today with infection precautions.)
== END 2018-11-10 13:21 | disposition home health service (06) ==
LOC: L&D/OP 12:58 → L&D 22:29
PROVIDERS: ADMIT Obstetrics & Gynecology; ATTEND Obstetrics & Gynecology
DX: O99.89 Other specified diseases and conditions complicating pregnancy, childbirth and the puerperium (principal); N13.30 Unspecified hydronephrosis; O23.43 Unspecified infection of urinary tract in pregnancy, third trimester; Z3A.31 31 weeks gestation of pregnancy; Z90.49 Acquired absence of other specified parts of digestive tract; Z79.2 Long term (current) use of antibiotics; Z98.890 Other specified postprocedural states
CPT/HCPCS: 36415; 51701; 59025; 76770; 85025; 87086; 96361; 96372; 96374; 96376; 99285; A4353; G0378; J0595; J0696; J2550; J7050

== ENCOUNTER 2018-11-29 13:46 | Day surgery (SDC) | payer BC, OTHER ==
[2018-11-29] MEDS ORDERED: Morphine 4 MG/ML VIAL SLOW IVP SCH (14:30)
[2018-11-29] MEDS ORDERED: Lactated Ringer's 1,000 ML IV SCH ×3 (14:30→16:00)
[2018-11-29 14:52] VITALS: BMI 38.7
[2018-11-29 15:05] LABS: #Eosinphils 0.1 thou/uL (0.0-0.7); #Lymphocytes 2.1 thou/uL (1.20-3.40); #Monocytes 0.7 thou/uL (0.11-0.59); #Neutrophils 12.9 thou/uL (1.40-6.50); %Basophils 0.2 % (0.0-1.0); %Eosinophils 0.7 % (0.0-10.0); %Monocytes 4.6 % (0.0-10.0); %Neutrophils 81.5 % (42.0-75.0); Hemoglobin 12.6 g/dL (12.0-16.0); Mean Corpuscular HGB CONC 34.3 g/dL (32.0-36.0); Mean Corpuscular Hemoglobin 28.4 pg (27.0-31.0); Mean Corpuscular Volume 82.8 fL (78.0-98.0); Mean Platelet Volume 9.7 fL (7.4-10.4); Platelet Count 206 thou/uL (130-400); Red Blood Cell (RBC) Count 4.45 mill/uL (4.20-5.40); White Blood Cell (WBC) Count 15.9 thou/uL (4.8-10.8)
[2018-11-29 15:23] LABS: Anion Gap 14 mmol/L (10-20); BUN (Urea Nitrogen) 8 mg/dL (7.0-18.7); Calc. Creatinine Clearance 252 mL/min (70-130); Calcium 8.6 mg/dL (7.8-10.44); Carbon Dioxide 20 mmol/L (22-29); Chloride 105 mmol/L (98-107); Estimated GFR-MDRD Greater than 90; Glucose 79 mg/dL (70-105); Potassium 3.8 mmol/L (3.5-5.1); Sodium 135 mmol/L (136-145)
[2018-11-29 15:31] LABS: Clarity CLEAR (Clear); Specific Gravity, Urine 1.032 (1.002-1.036)
[2018-11-29 15:32] LABS: Bilirubin Negative (Negative); Glucose, Urine (Dipstick) Negative (Negative); Leukocyte Negative (Negative); Nitrite Negative (Negative); Protein, Urine (Dipstick) > or equal to 300 mg/dL (Neg-Trace); Urobilinogen 0.2 mg/dL (0.2-1.0)
[2018-11-29 15:33] LABS: Blood, Urine Moderate (Negative)
[2018-11-29 15:35] LABS: Bacteria/HPF None Seen HPF (None Seen); Hyaline Casts/LPF NONE SEEN LPF (0-3 Hyaline); RBC/HPF 0-3 HPF (0-3); Squamous Epithelial 0-3 HPF (0-3)
--- NOTE | 2018-11-29 16:43 | ULT ---
Bilateral renal ultrasound CLINICAL INDICATION: Left flank pain in 34 week patient. COMPARISON: 11/08/2018 FINDINGS: Right kidney: There is mild prominence of the right renal pelvis without overt hydronephrosis. The de gree of dilatation of the renal pelvis has diminished when compared to prior study. Right kidney otherwise demonstrates a normal sonographic appearance without renal mass or renal calculus.The right kidney measures 12.2 cm in length. Left kidney: There is no evidence of a renal mass, calculus, or hydronephrosis. The left kidney measu res 12 cm in length. Urinary bladder: Within normal limits for degree of distention. Color flow evaluation demonstrates pr esence of the ureteral jets bilaterally. There is partial visualization of an intrauterine gestation. Cardiac Doppler was performed demonstrat ing heart tones of 127 bpm. IMPRESSION: 1. No evidence of hydronephrosis. 2. Intrauterine gestation.
--- NOTE | 2018-11-30 00:02 | PRG ---
DATE OF SERVICE: 11/29/2018 PRIMARY OB: Dr. Meek Roca. CHIEF COMPLAINT: Back pain with history of pyelonephritis on suppression. HISTORY OF PRESENT ILLNESS: The patient is a 23-year-old G3, P2 female, well known to Labor and Delivery, who has been on antibiotic suppression for pyelonephritis throughout the whole and most recently placed on Rocephin earlier in the month x3 doses and sent home on Macrobid for treatment and suppression given her prior use of Keflex prophylactically. The patient returns today reporting that she has been having back pain and was worried that she may be developing a kidney infection again. The patient denies fever, though she does say she was having some chills. She reports some difficulty trying to urinate. The patient reports that she hydrates herself with 2 to 3 glasses of yeti glass full of ice and water. She also reports that she drinks 2 glasses of tea in the evening at dinnertime and sometimes has a caffeinated soda during the day. The patient denies fever, headache, or chest pain. She does report some shortness of breath. She attributes to the , some nausea, but no vomiting. No diarrhea or constipation. No hip problems, knee problems, or muscle weakness. No new rashes. No vaginal bleeding or leakage of fluid. Again, she is reporting urinary hesitancy on first presentation. PAST MEDICAL HISTORY: Frequent urinary tract infections seen by a specialist, chronic proteinuria. PAST SURGICAL HISTORY: Cholecystectomy and hernia repair. ALLERGIES: NO KNOWN DRUG ALLERGIES. MEDICATIONS: 1. vitamins. 2. Macrobid. SOCIAL HISTORY: Denies drug, alcohol, or tobacco use. REVIEW OF SYSTEMS: Per HPI, a 12-point review of systems was reviewed with all other symptoms being negative, otherwise described. PHYSICAL EXAMINATION: VITAL SIGNS: Blood pressure 110/66, heart rate of 86, respiratory rate of 18, saturating 98% to 100% on room air. GENERAL: She appears to be in no acute distress, though she does appear worried and uncomfortable. She is alert, oriented, cooperative, and pleasant to interact with. HEAD: Normocephalic and atraumatic. LUNGS: Clear to auscultation bilaterally. HEART: Regular rate and rhythm. ABDOMEN: Soft and gravid. EXTREMITIES: Nontender with minimal edema bilaterally. She does have some flank pain or flank tenderness on the left more so than the right. She also has some left SI joint tenderness. : Exam at this time has been deferred. heart tracing shows a baseline in the 130s with moderate long-term variability, positive 15 x 15 accelerations, no decelerations. Tracing has lasted for 2 to 3 hours. Tocometer showing irritability, resolving with IV fluids. The patient received a total of 3 L of IV fluids with this encounter. LABORATORY DATA: White count prior to hydration was 15.8, hemoglobin 12.6, hematocrit 36.8, platelets of 206,000. Chemistry; sodium of 135, potassium 3.8, BUN of 8, creatinine of 0.8. Urine with a specific gravity of 1.032, greater than or equal to 300 of urine protein, 40 ketones, moderate blood, negative for leukocyte esterase, negative for nitrites, negative for squamous cells, no bacteria seen, 4 to 6 white blood cells present. After a total of 3 L of fluid was given to the patient, the patient reports that she feels much better. Her back pain is resolved. She finally is able to urinate without difficulty. IMAGING STUDIES: Ultrasound report of her kidneys, which demonstrate no evidence of hydronephrosis. No renal mass or calculus. ASSESSMENT AND PLAN: The patient is a 23-year-old female with an intrauterine at 34 weeks with history of pyelonephritis with this , on Macrobid for suppression. Urinalysis today shows no evidence of urinary tract infection. She did have very concentrated urine with ketones and has presented with significant dehydration, resolved with 3 L of IV fluids. She finally was able to urinate for us after her initial sample at the end of her third liter. We have reviewed the results with her. These findings have been shared with the patient and reassurance has been provided. The patient has been counseled to continue with her current course of suppression as instructed by her primary provider. We have also reviewed the importance of staying hydrated and limiting caffeine consumption at this time. The patient has been counseled to follow up with her primary OB as scheduled and has been given labor precautions. Job ID: [id number]
== END 2018-11-29 19:45 | disposition home or self-care (01) ==
LOC: L&D/OP 13:46
PROVIDERS: ATTEND Obstetrics & Gynecology
DX: O99.89 Other specified diseases and conditions complicating pregnancy, childbirth and the puerperium (principal); R10.9 Unspecified abdominal pain; M54.9 Dorsalgia, unspecified; Z3A.34 34 weeks gestation of pregnancy; Z79.899 Other long term (current) drug therapy
CPT/HCPCS: 51701; 76770; 80048; 81001; 85025; 96360; 96361; 96375; 99284; J2270

== ENCOUNTER 2018-12-15 22:03 | Inpatient (IN) | payer BC, OTHER ==
[~2018-12-15 22:03] MED LIST: Bupivacaine/Epinephrine 0.25% 30 ML VIAL ONE
[2018-12-15 22:42] VITALS: BMI 39.6
--- NOTE | 2018-12-15 22:45 | PDOC.LDHP ---
Labor and Delivery H&P Allergies/Adverse Reactions: Allergies Allergy/AdvReac Type Severity Reaction Status Date / Time No Known Drug Allergies Allergy Verified 12/15/18 22:45 - Plan -: PCP: Chanelle HPI: This is a 23 yo at 36.6 wks presenting for difficulty urinating. She states the last 3 days she has been straining so hard to urinate that she has been having bowel movements. She denies burning or blood with urination but is having back pain. The pain has been getting progressively worse over the last few days. She denies fevers, chills, or sweats. She denies N/V/D. She has been on chronic abx suppression for recurrent UTIs. She was on Keflex but then was switched to cefadroxil. She states this last medication has made her feel nauseous so she only took one dose. She affirms movement, denies cxns, ROM, bleeding/discharge. Denies DURHAM, visual changes, SOB, or swelling. History: OB hx: 2 vaginal deliveries at 36 and 39 weeks, was septic with pyelo during last PMH: nephrolithiasis, chornic proteinuria PSH: cholecystectomy, abdominal hernia repair Meds: PNV, s/p Keflex and macrobid now on cefadroxil Soc Hx: denies smoking, alcohol, drugs Fam Hx: denies downs, congenital defects Blood type: A+ Abs screen neg Hep b neg RPR/HIV neg Rubella immune GBS: unknown 1 hr GCT: 120 REVIEW OF SYSTEMS: Gen: no fever, chills, or sweats Neuro: no numbness/tingling, no weakness, denies headache Eyes: no visual changes ENT: no hearing changes, no sore throat, no runny nose Resp: no cough, no SOB, no wheeze Card: denies chest pain, no palpitations GI: vomiting x1 today with decreased oral intake, no abdominal pain : see hpi MSK: no myalgias, no joint pain/stiffness Heme: no easy bruising/bleeding Skin: no rash, no erythema PHYSICAL EXAMINATION: General: NAD, alert and oriented x3 HEENT: PERRLA, EOMI, normal sclera, oropharynx without erythema or exudate Neck: Supple. Full ROM. Heart/Cardiovascular System: RRR, Cap refill < 3 seconds, no rub, no murmur Lungs/Respiratory System: clear to auscultation bilaterally. No increased work of breathing. Room air. Abdomen/Gastro-Intestinal System: no abdominal tenderness, normal bowel sounds, Gravid Extremities: Warm extremities. No cyanosis or edema. Neuro: No gross deficits appreciated. CN 2-12 grossly intact Psychiatry: Awake, Alert and cooperative with exam Skin: No lesions, rashes, or ulcers Musculoskeletal: Full ROM A/P: This is a 23 yo at 36.6 wks presenting for difficulty urinating # Recurrent UTI, failed outpatient ppx - Urine cath showed 300 ml, patient was able to void after 1L bolus - Ua showed infection, no squamous cells - Will start rocephin, admit for monitoring and check urine culture -failed keflex, macrobid, augmentin, cefadroxil Addendum - Attending - Attending Attestation Date/Time: 12/18/18 1013 I personally evaluated the patient and discussed the management with Dr. Haywood. I agree with the History, Examination, Assessment and Plan documented above with any addition or exceptions noted below.
[2018-12-15] MEDS ORDERED: Lactated Ringer's 1,000 ML IV SCH (23:00)
[2018-12-15] MEDS ORDERED: Acetaminophen 500 MG TAB PO SCH (23:00)
[2018-12-15 23:22] LABS: Hemoglobin 12.3 g/dL (12.0-16.0); Mean Corpuscular HGB CONC 33.8 g/dL (32.0-36.0); Mean Corpuscular Hemoglobin 27.2 pg (27.0-31.0); Mean Corpuscular Volume 80.5 fL (78.0-98.0); Mean Platelet Volume 9.7 fL (7.4-10.4); Platelet Count 206 thou/uL (130-400); RBC Distribution Width 12.5 % (11.5-14.5); Red Blood Cell (RBC) Count 4.52 mill/uL (4.20-5.40); White Blood Cell (WBC) Count 13.3 thou/uL (4.8-10.8)
[2018-12-15 23:25] LABS: Bilirubin Negative (Negative); Blood, Urine Small (Negative); Clarity CLOUDY (Clear); Glucose, Urine (Dipstick) Negative (Negative); Leukocyte Trace (Negative); Nitrite Positive (Negative); Protein, Urine (Dipstick) 300 mg/dL (Neg-Trace); Specific Gravity, Urine 1.019 (1.002-1.036); Urobilinogen 0.2 mg/dL (0.2-1.0); pH, Urine 6.5 (5.0-9.0)
[2018-12-15 23:27] LABS: Bacteria/HPF 4+ HPF (None Seen); Squamous Epithelial 0-3 HPF (0-3)
[2018-12-15] MEDS: Phenazopyridine HCl 97.5 MG TABLET PO SCH (23:36)
[2018-12-15 23:40] LABS: Pathc Cast-AUWi Flag 8.02 (0-2.49)
[2018-12-15 23:41] LABS: Anion Gap 13 mmol/L (10-20); BUN (Urea Nitrogen) 6 mg/dL (7.0-18.7); Calc. Creatinine Clearance 264 mL/min (70-130); Calcium 9.1 mg/dL (7.8-10.44); Carbon Dioxide 21 mmol/L (22-29); Chloride 106 mmol/L (98-107); Estimated GFR-MDRD Greater than 90; Glucose 96 mg/dL (70-105); Potassium 3.8 mmol/L (3.5-5.1); Sodium 136 mmol/L (136-145)
[2018-12-15 23:43] LABS: Hyaline Casts/LPF NONE SEEN LPF (0-3 Hyaline); Other Casts/LPF None Seen LPF (0-3 Hyaline)
[2018-12-16] MEDS ORDERED: Ondansetron PF 4 MG/2 ML Vial IVP PRN (00:19)
[2018-12-16] MEDS ORDERED: Promethazine HCl 25 MG/ML VIAL IM PRN (00:19)
[2018-12-16] MEDS: Sodium Chloride 0.9% 1,000 ML IV SCH ×3 (01:18→17:33)
[2018-12-16] MEDS: cefTRIAXone\\ROCEPHIN 1 GM in Sodium Chloride 0.9% 100 ML IVPB SCH ×2 (01:20→13:52)
[2018-12-16] MEDS: Metoclopramide HCl 10 MG/2 ML VIAL IVP SCH ×2 (01:20→17:34)
[2018-12-16] MEDS ORDERED: Morphine 4 MG/ML VIAL SLOW IVP SCH (03:15)
--- NOTE | 2018-12-16 06:52 | PDOC.OBAPN ---
R OB AP PN: Sub - Interval History Hospital Day: 2 Chief Complaint: difficulty urinating Indentification: Interval History: urinating easily, improved abdominal pain but still 7/10, slept well R OB AP PN: Obj - Maternal Vital signs: BP: 98/63 HR: 87 RR: 18 Tmax: 98.5 Pox: 98% on RA R OB AP PN: Exam - Physical Exam General: NAD, awake, alert and oriented HEENT: normocephalic and atraumatic, MMM Neck: supple Heart: RRR, normal S1/S2, no murmurs/rubs/gallops General: CTAB, no respiratory distress, good air movement, no wheezing Abdomen: soft, gravid, non-tender, no masses Musculoskeletal: normal gait and station, pulses present Neurological: cranial nerves II through XII intact, sensation to pain,touch and proprioception grossly normal Skin: no rash, good tugor, capillary refill <2 seconds Lymphatic: no unusual bruising or bleeding R OB AP PN: Data - Labs Lab results: Laboratory Results - last 24 hr 12/15/18 12/15/18 12/15/18 23:03 23:03 23:03 WBC 13.3 H RBC 4.52 Hgb 12.3 Hct 36.4 MCV 80.5 MCH 27.2 MCHC 33.8 RDW 12.5 Plt Count 206 MPV 9.7 Sodium 136 Potassium 3.8 Chloride 106 Carbon Dioxide 21 L Anion Gap 13 BUN 6 L Creatinine 0.49 L Estimated GFR (MDRD) Greater than 90 Glucose 96 Calcium 9.1 Urine Color YELLOW Urine Clarity CLOUDY Urine pH 6.5 Ur Specific [place] 1.019 Urine Protein 300 H Urine Glucose (UA) Negative Urine Ketones Negative Urine Blood Small H Urine Nitrite Positive H Urine Bilirubin Negative Urine Urobilinogen 0.2 Ur Leukocyte Esterase Trace H Urine RBC 11-20 H Urine WBC Greater Than 50-TNTC H Ur Squamous Epith Cells 0-3 Urine Bacteria 4+ H Hyaline Casts NONE SEEN Other Casts None Seen R OB AP PN: A/P - Problem List (1) UTI (urinary tract infection) Current Visit: No Status: Acute Qualifiers: Urinary tract infection type: acute cystitis Hematuria presence: without hematuria Qualified Code(s): N30.00 - Acute cystitis without hematuria Comment: Discussion: Date/Time: 12/16/18 0651 This is a 23 yo at 37.0 wks presenting for difficulty urinating # Recurrent UTI, failed outpatient ppx - Urine cath showed 300 ml at time of admission, urinated multiple times overnight - Ua showed infection, no squamous cells - Cont rocephin, await urine culture and sensitivities -failed keflex, macrobid, augmentin, cefadroxil- history of sepsis with last - pain is improved this AM, had a dose of azo last night, was able to sleep through the night PCP: Chanelle This H&P was discussed with Dr. Rose Addendum - Attending - Attending Attestation Date/Time: 12/16/18 4448 I personally evaluated the patient and discussed the management with Dr. Haywood I agree with the History, Examination, Assessment and Plan documented above with any addition or exceptions noted below.
[2018-12-16] MEDS ORDERED: cefTRIAXone\\ROCEPHIN 1 GM in Sodium Chloride 0.9% 100 ML IVPB SCH (09:00)
--- NOTE | 2018-12-16 15:09 | PDOC.EVN ---
Event Note - Event Note Event Note: HPI: This is a 23 yo at 36.6 wks presenting for difficulty urinating. She states the last 3 days she has been straining so hard to urinate that she has been having bowel movements. She denies burning or blood with urination but is having back pain. The pain has been getting progressively worse over the last few days. She denies fevers, chills, or sweats. She denies N/V/D. She has been on chronic abx suppression for recurrent UTIs. She was on Keflex but then was switched to cefadroxil. She states this last medication has made her feel nauseous so she only took one dose. She affirms movement, denies cxns, ROM, bleeding/discharge. Denies DURHAM, visual changes, SOB, or swelling. History: OB hx: 2 vaginal deliveries at 36 and 39 weeks, was septic with pyelo during last PMH: nephrolithiasis, chornic proteinuria PSH: cholecystectomy, abdominal hernia repair Meds: PNV, s/p Keflex and macrobid now on cefadroxil Soc Hx: denies smoking, alcohol, drugs Fam Hx: denies downs, congenital defects Blood type: A+ Abs screen neg Hep b neg RPR/HIV neg Rubella immune GBS: unknown 1 hr GCT: 120 REVIEW OF SYSTEMS: Gen: no fever, chills, or sweats Neuro: no numbness/tingling, no weakness, denies headache Eyes: no visual changes ENT: no hearing changes, no sore throat, no runny nose Resp: no cough, no SOB, no wheeze Card: denies chest pain, no palpitations GI: vomiting x1 today with decreased oral intake, no abdominal pain : see hpi MSK: no myalgias, no joint pain/stiffness Heme: no easy bruising/bleeding Skin: no rash, no erythema PHYSICAL EXAMINATION: General: NAD, alert and oriented x3 HEENT: PERRLA, EOMI, normal sclera, oropharynx without erythema or exudate Neck: Supple. Full ROM. Heart/Cardiovascular System: RRR, Cap refill < 3 seconds, no rub, no murmur Lungs/Respiratory System: clear to auscultation bilaterally. No increased work of breathing. Room air. Abdomen/Gastro-Intestinal System: no abdominal tenderness, normal bowel sounds, Gravid Extremities: Warm extremities. No cyanosis or edema. Neuro: No gross deficits appreciated. CN 2-12 grossly intact Psychiatry: Awake, Alert and cooperative with exam Skin: No lesions, rashes, or ulcers Musculoskeletal: Full ROM A/P: 1. 23 yo at 36.6 wks 2. Prior hx of urosepsis in previous . 3. She has had mutiple UTI issues this , including prior admission for pyelonephritis. 4. Non-complianc with last out-pt antibiotic due to nausea (not reported to me). 4. Will start rocephin, admit for monitoring and check urine culture. Last Urine Culture on December 14 showed E. coli susceptible to Cephalosporins and Macrobid.
[2018-12-16] MEDS: Lactated Ringer's 1,000 ML IV SCH (17:33)
[2018-12-16] MEDS: Phenazopyridine HCl 97.5 MG TABLET PO SCH (17:34)
[2018-12-16] MEDS ORDERED: Zolpidem Tartrate 5 MG TAB PO PRN (22:47)
[2018-12-17] MEDS: Lactated Ringer's 1,000 ML IV SCH ×3 (00:05→18:15)
[2018-12-17] MEDS: Phenazopyridine HCl 97.5 MG TABLET PO SCH ×4 (01:09→18:20)
[2018-12-17] MEDS: Metoclopramide HCl 10 MG/2 ML VIAL IVP SCH ×3 (01:09→14:14)
[2018-12-17] MEDS: cefTRIAXone\\ROCEPHIN 1 GM in Sodium Chloride 0.9% 100 ML IVPB SCH ×2 (01:21→13:23)
[2018-12-17] MEDS: Sodium Chloride 0.9% 1,000 ML IV SCH ×3 (08:41→18:14)
[2018-12-17] MEDS: Metoclopramide HCl 10 MG TAB PO SCH (22:00)
[2018-12-18] MEDS: cefTRIAXone\\ROCEPHIN 1 GM in Sodium Chloride 0.9% 100 ML IVPB SCH (01:10)
[2018-12-18] MEDS: Sodium Chloride 0.9% 1,000 ML IV SCH (03:17)
[2018-12-18] MEDS: Lactated Ringer's 1,000 ML IV SCH ×4 (03:26→23:31)
[2018-12-18] MEDS: Metoclopramide HCl 10 MG TAB PO SCH (05:54)
[2018-12-18] MEDS: Phenazopyridine HCl 97.5 MG TABLET PO SCH (09:12)
[2018-12-18] MEDS ORDERED: Misoprostol 200 MCG TAB PR PRN (11:11)
[2018-12-18] MEDS ORDERED: Ibuprofen 800 MG TAB PO PRN (11:11)
[2018-12-18] MEDS ORDERED: Lidocaine 1% (PF) 30 ML VIAL SC PRN (11:11)
[2018-12-18] MEDS ORDERED: Zolpidem Tartrate 5 MG TAB PO PRN (11:11)
[2018-12-18] MEDS ORDERED: NS w/ Oxytocin 10 units 500 ML IV SCH (11:11)
[2018-12-18] MEDS ORDERED: Carboprost 250 MCG/ML AMP IM PRN (11:11)
[2018-12-18] MEDS ORDERED: Diphenoxylate HCl/Atropine Tablet PO PRN ×2 (11:11)
[2018-12-18] MEDS ORDERED: Ondansetron PF 4 MG/2 ML Vial IVP PRN (11:11)
[2018-12-18] MEDS ORDERED: Docusate 100 MG CAP PO PRN (11:11)
[2018-12-18] MEDS ORDERED: NS / Oxytocin 40 units/1000ml 1,000 ML IV PRN (11:11)
[2018-12-18] MEDS ORDERED: HYDROcodone/Acetaminophen 5/325 mg Tablet PO PRN ×2 (11:11)
[2018-12-18] MEDS ORDERED: Methylergonovine 0.2 MG/ML VIAL IM PRN (11:11)
[2018-12-18] MEDS ORDERED: Misoprostol 100 MCG TAB ONE (11:18)
[2018-12-18] MEDS: Misoprostol 100 MCG TAB VAG SCH ×3 (11:29→21:50)
[2018-12-18 11:32] LABS: Hemoglobin 11.5 g/dL (12.0-16.0); Mean Corpuscular HGB CONC 33.6 g/dL (32.0-36.0); Mean Corpuscular Hemoglobin 27.2 pg (27.0-31.0); Mean Corpuscular Volume 81.1 fL (78.0-98.0); Mean Platelet Volume 9.3 fL (7.4-10.4); Platelet Count 188 thou/uL (130-400); RBC Distribution Width 12.7 % (11.5-14.5); Red Blood Cell (RBC) Count 4.21 mill/uL (4.20-5.40); White Blood Cell (WBC) Count 10.1 thou/uL (4.8-10.8)
[2018-12-18] MEDS: NS w/ Oxytocin 10 units 500 ML IV SCH ×2 (11:38→15:30)
[2018-12-18 12:14] LABS: Syphilis Antibody Nonreactive (Nonreactive); Syphilis Antibody Index 0.04 S/CO (<1.00 Non-Reactive)
[2018-12-18 12:16] LABS: HBSAg Index 0.33 S/CO (0-0.99); Hep B Surf Ag Non-Reactive S/CO (NonReactive)
[2018-12-18] MEDS: ceFAZolin 1 GM/D5W 1 GM in Premix Bag 1 BAG IVPB SCH ×2 (13:18→21:20)
[2018-12-18] MEDS: Butorphanol Tartrate 1 MG/ML VIAL SLOW IVP PRN ×3 (19:02→21:53)
[2018-12-18] MEDS ORDERED: Fentanyl 4 mcg/Bup 0.1% Cadd 100 ML ONE (22:49)
[2018-12-18] MEDS ORDERED: Lidocaine 1.5%/Epinephrine 1:200,000 5 ML AMPUL IJ ONE (22:50)
[2018-12-18] MEDS ORDERED: Fentanyl 100 MCG/2 ML VIAL ONE (22:52)
[2018-12-19] MEDS: Misoprostol 100 MCG TAB VAG SCH ×4 (00:33→16:32)
[2018-12-19] MEDS ORDERED: Hydrocerin (Eucerin) Cream 120 gm Jar TOP PRN (01:07)
[2018-12-19] MEDS ORDERED: Ondansetron PF 4 MG/2 ML Vial IVP PRN ×2 (01:07→11:42)
[2018-12-19] MEDS ORDERED: Lactated Ringer's 500 ML IV PRN (01:07)
[2018-12-19] MEDS ORDERED: Acetaminophen 325 MG TAB PO PRN (01:07)
[2018-12-19] MEDS ORDERED: Promethazine HCl 25 MG/ML VIAL IM PRN ×2 (01:07→11:42)
[2018-12-19] MEDS ORDERED: diphenhydrAMINE 50 MG/ML VIAL IVP PRN (01:07)
[2018-12-19] MEDS ORDERED: ePHEDrine/0.9% NaCl/PF SYRINGE 50 mg/10 ml SLOW IVP PRN (01:07)
[2018-12-19] MEDS ORDERED: Naloxone HCl 0.4 mg/ml Vial IVP PRN ×2 (01:07)
[2018-12-19] MEDS ORDERED: Communication Order-Pharmacy FS SCH (01:15)
[2018-12-19] MEDS ORDERED: Fentanyl 4 mcg/Bupivacaine 0.1% Cassette 100 ML EPIDURAL SCH (01:15)
[2018-12-19] MEDS: ceFAZolin 1 GM/D5W 1 GM in Premix Bag 1 BAG IVPB SCH (05:52)
[2018-12-19] MEDS ORDERED: Fentanyl 4 mcg/Bup 0.1% Cadd 100 ML ONE (07:42)
[2018-12-19] MEDS ORDERED: NS / Oxytocin 40 units/1000ml 1,000 ML ONE (08:52)
[2018-12-19] MEDS ORDERED: Lidocaine 1% (PF) 30 ML VIAL ONE (08:52)
--- NOTE | 2018-12-19 08:52 | PDOC.EVN ---
Event Note - Event Note Event Note: HPI: This is a 23 yo with IUP at 37.1 weeks with now resolving recurrent pyelonephritis (two episodes in the last month). She also has a previous hx of severe, life threatening urosepsis requiring ICU to ICU transfer to [facility] in [place]. The patient self-discontinued her home antibiotics this past week after yet another UTI diagnosed in clinic (E. coli on culture), and was admitted for a second pyelonephritis diagnosis. After a lot of careful thought, the patient and have asked me if we could induce labor LILLIAN given the below facts: 1. The history of near lethal urospesis 2. Two episodes of recurrent pyelonephritis this trimester 3. Inability to adequately treat for UTI at home this month (failure of out- patient management) 4. Previous M recommendations and encouragement at [facility] FOR early term delivery in this patient for urologic complications with previous . The case was discussed by telephone with Dr. Nguyen, Chief of our [facility], and we both agreed that under these circumstances, and after discussing the risks, benefits, and alternatives with the patient and her family , proceeding with induction of labor was reasonable and medically sound decision making. History: OB hx: 2 vaginal deliveries at 36 and 39 weeks, was septic with pyelo during last PMH: nephrolithiasis PSH: cholecystectomy, abdominal hernia repair Meds: PNV, s/p Keflex and macrobid now on cefadroxil Soc Hx: denies smoking, alcohol, drugs Fam Hx: denies downs, congenital defects Blood type: A+ Abs screen neg Hep b neg RPR/HIV neg Rubella immune GBS: unknown 1 hr GCT: 120 PHYSICAL EXAMINATION: General: NAD, alert and oriented x3 HEENT: PERRLA, EOMI, normal sclera, oropharynx without erythema or exudate Neck: Supple. Full ROM. Heart/Cardiovascular System: RRR, Cap refill < 3 seconds, no rub, no murmur Lungs/Respiratory System: clear to auscultation bilaterally. No increased work of breathing. Room air. Abdomen/Gastro-Intestinal System: no abdominal tenderness, normal bowel sounds, Gravid Extremities: Warm extremities. No cyanosis or edema. Neuro: No gross deficits appreciated. CN 2-12 grossly intact Psychiatry: Awake, Alert and cooperative with exam Skin: No lesions, rashes, or ulcers Musculoskeletal: Full ROM Assesment: 1. with galaviz IUP at 37 weeks with history of near lethal urospesis 2. Two episodes of recurrent pyelonephritis this trimester 3. Inability to adequately treat for UTI at home this month (failure of out- patient management) 4. Previous M recommendations and encouragement at [facility] FOR early term delivery in this patient for urologic complications with previous . 5. GBS Positive Plan: 1. Cytotec Induction of labor when a room becomes available. 2. GBS prophylaxes
[2018-12-19] MEDS ORDERED: Zolpidem Tartrate 5 MG TAB PO PRN (11:42)
[2018-12-19] MEDS ORDERED: Lanolin Ointment 7 GM TUBE TOP PRN (11:42)
[2018-12-19] MEDS ORDERED: NS / Oxytocin 40 units/1000ml 1,000 ML IV SCH (11:42)
[2018-12-19] MEDS ORDERED: HYDROcodone/Acetaminophen 5/325 mg Tablet PO PRN (11:42)
[2018-12-19] MEDS ORDERED: Milk Of Magnesia 30 ML UDCUP PO PRN (11:42)
[2018-12-19] MEDS ORDERED: diphenhydrAMINE 25 MG CAP PO PRN (11:42)
[2018-12-19] MEDS ORDERED: Benzocaine-Menthol 82.5 ML CAN TOP PRN (11:42)
[2018-12-19] MEDS ORDERED: Varicella virus, LIVE 0.5 ML VIAL SC ONE (11:42)
[2018-12-19] MEDS ORDERED: Measles/Mumps/Rubella 10 MCG/0.5 ML VIAL SC ONE (11:42)
[2018-12-19] MEDS ORDERED: Bisacodyl 10 MG SUPP PR PRN (11:42)
[2018-12-19] MEDS ORDERED: Preparation H Ointment 28 GM TUBE PR PRN (11:42)
[2018-12-19] MEDS ORDERED: Adacel (T-DAP) 0.5 ML SYRINGE IM ONE (11:42)
[2018-12-19] MEDS ORDERED: Methylergonovine 0.2 MG/ML VIAL IM PRN (11:42)
[2018-12-19] MEDS ORDERED: Docusate Calcium (SURFAK) 240 MG CAP PO SCH (12:00)
[2018-12-19] MEDS ORDERED: Prenatal Vitamin 1 TAB PO SCH (12:00)
[2018-12-19] MEDS: Ferrous Sulfate 325 MG TAB PO SCH (16:31)
[2018-12-19] MEDS: Ibuprofen 800 MG TAB PO SCH ×2 (16:31→22:53)
[2018-12-19] MEDS: Lactated Ringer's 1,000 ML IV SCH ×2 (16:32→16:33)
[2018-12-19] MEDS: Sodium Chloride 0.9% 1,000 ML IV SCH (16:33)
[2018-12-19] MEDS: HYDROcodone/Acetaminophen 5/325 mg Tablet PO PRN (18:15)
[2018-12-19] MEDS: Docusate Calcium (SURFAK) 240 MG CAP PO SCH (22:54)
[2018-12-20] MEDS: Ibuprofen 800 MG TAB PO SCH ×3 (06:26→16:19)
[2018-12-20] MEDS: Ferrous Sulfate 325 MG TAB PO SCH ×2 (08:07→16:24)
[2018-12-20] MEDS: Docusate Calcium (SURFAK) 240 MG CAP PO SCH (08:11)
[2018-12-20 08:57] LABS: Hemoglobin 12.1 g/dL (12.0-16.0); Mean Corpuscular HGB CONC 33.5 g/dL (32.0-36.0); Mean Corpuscular Hemoglobin 27.1 pg (27.0-31.0); Mean Corpuscular Volume 80.9 fL (78.0-98.0); Mean Platelet Volume 9.6 fL (7.4-10.4); Platelet Count 189 thou/uL (130-400); RBC Distribution Width 12.8 % (11.5-14.5); Red Blood Cell (RBC) Count 4.46 mill/uL (4.20-5.40); White Blood Cell (WBC) Count 9.9 thou/uL (4.8-10.8)
[2018-12-20] MEDS ORDERED: Prenatal Vitamin 1 TAB PO SCH (09:00)
[2018-12-20] MEDS: HYDROcodone/Acetaminophen 5/325 mg Tablet PO PRN (10:04)
[2018-12-20 17:27] VITALS: BP 115/56; TEMP 97.9
--- NOTE | 2018-12-20 18:47 | PDOC.EVN ---
Event Note - Event Note Event Note: Patient Name: JUSTO ARANDA Record Number: [id number] Date of : [birth year] Patient Status: Inpatient Attending Provider: Meek Roca Date: 12/16/18 15:03 Initialization Date: 12/16/18 15:03 Event Note - Event Note Event Note: HPI: This is a 23 yo at 37.0. She has been on chronic abx suppression for recurrent UTIs. She was on Keflex but then was switched to cefadroxil. She states this last medication has made her feel nauseous so she only took one dose. She affirms movement, denies cxns, ROM, bleeding/discharge. Denies DURHAM, visual changes, SOB, or swelling. History: OB hx: 2 vaginal deliveries at 36 and 39 weeks, was septic with pyelo during last PMH: nephrolithiasis PSH: cholecystectomy, abdominal hernia repair Meds: PNV, s/p Keflex and macrobid now on cefadroxil Soc Hx: denies smoking, alcohol, drugs Fam Hx: denies downs, congenital defects Blood type: A+ Abs screen neg Hep b neg RPR/HIV neg Rubella immune GBS: unknown 1 hr GCT: 120 REVIEW OF SYSTEMS: Gen: no fever, chills, or sweats Neuro: no numbness/tingling, no weakness, denies headache Eyes: no visual changes ENT: no hearing changes, no sore throat, no runny nose Resp: no cough, no SOB, no wheeze Card: denies chest pain, no palpitations GI: vomiting x1 today with decreased oral intake, no abdominal pain : see hpi MSK: no myalgias, no joint pain/stiffness Heme: no easy bruising/bleeding Skin: no rash, no erythema PHYSICAL EXAMINATION: General: NAD, alert and oriented x3 HEENT: PERRLA, EOMI, normal sclera, oropharynx without erythema or exudate Neck: Supple. Full ROM. Heart/Cardiovascular System: RRR, Cap refill < 3 seconds, no rub, no murmur Lungs/Respiratory System: clear to auscultation bilaterally. No increased work of breathing. Room air. Abdomen/Gastro-Intestinal System: no abdominal tenderness, normal bowel sounds, Gravid Extremities: Warm extremities. No cyanosis or edema. Neuro: No gross deficits appreciated. CN 2-12 grossly intact Psychiatry: Awake, Alert and cooperative with exam Skin: No lesions, rashes, or ulcers Musculoskeletal: Full ROM A/P: 1. 23 yo at 37.0 wks 2. Prior hx of urosepsis in previous . 3. She has had mutiple UTI issues this , including prior admission for pyelonephritis. 4. Non-complianc with last out-pt antibiotic due to nausea (not reported to me). 4. Continue Rocephin
--- NOTE | 2018-12-20 18:49 | PDOC.PP ---
Post Progress Note Post Day #: 1 PO intake tolerated: yes Flatus: yes Ambulation: yes Vital Signs (12 hours) Temp Pulse Resp BP BP Pulse Ox 12/20/18 17:08 97.9 F 83 18 115/56 L 12/20/18 08:16 98.0 F 66 20 100/63 97 12/20/18 08:00 97 Weight Weight 210 lb - Physical Examination General: NAD Cardiovascular: no m/r/g, RRR Respiratory: clear to auscultation bilaterally, non-labored breathing Abdominal: + bowel sounds, lochia, no distention Extremities: negative homans (B) Neurological: no gross focal deficits Psychiatric: A&Ox3, normal affect Result Diagrams: 12/20/18 08:36 12/15/18 23:03 Additional Labs: Post Labs Blood Type A POSITIVE 12/18/18 11:22 Hep Bs Antigen Non-Reactive S/CO (NonReactive) 12/18/18 11:22
--- NOTE | 2018-12-21 02:59 | DN ---
DATE OF PROCEDURE: 12/19/2018 DATE OF SERVICE: 12/19/2018 at 0911, central daylight savings time. PREOPERATIVE DIAGNOSES: Intrauterine at 37 weeks and 3 days with a history of long-standing urological complications including 2 admissions for severe pyelonephritis at the end of this and a previous history of pyelonephritis in the last leading to life-threatening urosepsis requiring ICU to ICU transfer from [facility] where the patient apparently survived. The patient and her approached me with desire to deliver at early full-term in this as I did in the last a long conversation discussing the risks, benefits, and alternatives to delivering at 37 weeks. Ultimately, the patient's decision was to deliver at 37 weeks. This case was discussed also with the director of obstetrics, Dr. Antonio Nguyen, where we discussed early delivery for these indications, and we both thought it was reasonable to respect the patient's request. POSTOPERATIVE DIAGNOSES: Intrauterine at 37 weeks and 3 days with a history of long-standing urological complications including 2 admissions for severe pyelonephritis at the end of this and a previous history of pyelonephritis in the last leading to life-threatening urosepsis requiring ICU to ICU transfer from [facility] where the patient apparently survived. The patient and her approached me with desire to deliver at early full-term in this as I did in the last a long conversation discussing the risks, benefits, and alternatives to delivering at 37 weeks. Ultimately, the patient's decision was to deliver at 37 weeks. This case was discussed also with the director of obstetrics, Dr. Antonio Nguyen, where we discussed early delivery for these indications, and we both thought it was reasonable to respect the patient's request. PROCEDURE: Spontaneous vaginal delivery over intact perineum. FINDINGS: Viable male infant, weighing 3042 g or 6 pounds 11 ounces. Apgars 8 and 9. QUANTITATIVE BLOOD LOSS: 450 mL. COMPLICATIONS: None. PROCEDURE IN DETAIL: The patient presented to [facility] where she was admitted to the labor and delivery service. The patient underwent a normal and uneventful labor with normal cervical dilatation until she was found to be completely dilated. She was then allowed to push and was able to bring the baby down and delivered the baby in a vertex presentation without difficulties. Once the head delivered in occiput anterior position, the shoulders followed spontaneously along with the rest of the baby's body. Once out the baby's mouth and nose were bulb suctioned. The cord was clamped and cut and baby was handed to waiting attendants. Cord blood was collected. Gentle fundal massage was performed and the placenta delivered intact without problems. Hemostasis was assured. Quantitative blood loss was calculated. Inspection of the cervix, vaginal vault, and perineum did not reveal any lacerations needing suturing. Once again, hemostasis was within normal limits and the patient was allowed to recover in the labor and delivery room. Baby went to nursery. Job ID: [id number]
== END 2018-12-20 18:40 | disposition home or self-care (01) | DRG 806 ==
LOC: L&D/OP 22:03 → L&D 12-16 00:20 → 3SW 12-17 08:29 → L&D 12-18 11:13 → 3SW 12-19 16:51
PROVIDERS: ADMIT Obstetrics & Gynecology; ATTEND Obstetrics & Gynecology
PROC: 10E0XZZ Delivery of Products of Conception, External Approach (ICD-10-PCS; principal; 2018-12-20)
DX: O98.82 Other maternal infectious and parasitic diseases complicating childbirth (principal); N39.0 Urinary tract infection, site not specified; Z37.0 Single live birth; O99.824 Streptococcus B carrier state complicating childbirth; Z3A.37 37 weeks gestation of pregnancy; Z90.49 Acquired absence of other specified parts of digestive tract
CPT/HCPCS: 36415; 51701; 51702; 59025; 80048; 81001; 85027; 86780; 86850; 86900; 86901; 87077; 87086; 87186; 87340; 99285; J0595; J0690; J0696; J2001; J2405; J2550; J2590; J2765; J3010; J3490; J8597